=== PATIENT | female | born 1985 | race Caucasian/White ===

== ENCOUNTER 2020-02-04 13:05 | Outpatient (REF) | payer OTHER, SELFPAY ==
[2020-02-04 13:53] LABS: COVID-19 Test Negative (Negative)
== END 2020-02-04 13:06 | disposition home or self-care (01) ==
LOC: HO.LAB 13:05
PROVIDERS: Visit Provider Internal Medicine
DX: Z20.828 Contact with and (suspected) exposure to other viral communicable diseases (principal)
CPT/HCPCS: 87635

== ENCOUNTER 2020-03-26 11:54 | Outpatient (REF) | payer OTHER, SELFPAY ==
[2020-03-26 12:56] LABS: COVID-19 Test Negative (Negative)
== END 2020-03-26 11:55 | disposition home or self-care (01) ==
LOC: HO.EMPCOV 11:54
PROVIDERS: Visit Provider Internal Medicine
DX: Z20.828 Contact with and (suspected) exposure to other viral communicable diseases (principal)
CPT/HCPCS: 87635; C9803

== ENCOUNTER → 2020-04-24 14:25 | Outpatient (BNVA) | payer OTHER, SELFPAY | PROVIDERS: Visit Provider Physician Assistant Medical | DX: Z13.89 Encounter for screening for other disorder (principal) | CPT/HCPCS: 99202 ==

== ENCOUNTER → 2020-05-01 13:21 | Outpatient (BNVA) | payer OTHER, SELFPAY | PROVIDERS: Visit Provider Physician Assistant Medical | DX: M25.511 Pain in right shoulder (principal) | CPT/HCPCS: 99213 ==

== ENCOUNTER → 2020-05-15 09:07 | Outpatient (BNVA) | payer OTHER, SELFPAY | PROVIDERS: PCP Pediatrics; Visit Provider Physician Assistant Medical | DX: M25.511 Pain in right shoulder (principal) | CPT/HCPCS: 99213 ==

== ENCOUNTER → 2020-06-11 10:53 | Outpatient (BNVA) | payer OTHER, SELFPAY | PROVIDERS: PCP Pediatrics; Visit Provider Physician Assistant Medical | DX: Z13.89 Encounter for screening for other disorder (principal) | CPT/HCPCS: 99213 ==

== ENCOUNTER 2020-06-17 17:57 | Outpatient (REF) | payer OTHER, SELFPAY ==
--- NOTE | ~2020-06-17 | MR_ITS ---
EXAMINATION: MR SHOULDER WITHOUT CONTRAST, RIGHT CLINICAL INFORMATION: Persistent, recurrent right shoulder pain, not improved with physical therapy. COMPARISON: None TECHNIQUE: MRI of the shoulder without contrast was performed on a high-field scanner. FINDINGS: ROTATOR CUFF: As seen on image 10/20 of series 6, there is a very thin focus of intermediate interstitial signal intensity in the junctional fibers of the supraspinatus and infraspinatus tendons at the insertion, likely corresponding to very mild tendinosis at the junctional fibers with subtle concealed interstitial delamination. No significant tears. In particular, no surfacing tears are identified. No additional tendinopathy. No muscle atrophy or fatty infiltration. BICEPS: Normal. CORACOACROMIAL ARCH: The undersurface of the acromion is flat with no subacromial spur. The acromioclavicular joint is normal. No subacromial-subdeltoid bursitis. LABRUM/CAPSULE: Normal. No labral tears. Joint capsule is normal in thickness and signal intensity. GLENOHUMERAL JOINT/MARROW: Normal. Marrow signal is normal. Articular cartilage appears well preserved without findings of osteoarthritis. No joint effusion or synovitis. MR/MR shoulder RT wo con IMPRESSION: Subtle rotator cuff tendinosis at the junctional fibers of the supraspinatus and infraspinatus tendons. Otherwise normal right shoulder MRI.
== END 2020-06-17 17:58 | disposition home or self-care (01) ==
LOC: HO.MRI 17:57
PROVIDERS: Visit Provider Internal Medicine
DX: M25.511 Pain in right shoulder (principal)
CPT/HCPCS: 73221

== ENCOUNTER → 2020-06-25 15:34 | Outpatient (BNVA) | payer OTHER, SELFPAY | PROVIDERS: PCP Pediatrics; Visit Provider Physician Assistant | DX: Z13.89 Encounter for screening for other disorder (principal) | CPT/HCPCS: 99213 ==

== ENCOUNTER 2020-07-02 11:00 | Outpatient (RCR) | payer OTHER, SELFPAY ==
--- NOTE | 2020-05-05 08:01 | MHC.PT.EP ---
[facility] [place] Office [place] Office [place] Office [address] [phone] F: [phone] F: [phone] F: [phone] F: [phone] Physical Therapy Plan of Care Date of Evaluation: 05/05/20 Date of Surgery: Diagnosis: (R) Shoulder Derangement Assessment: Pt is a 35 y.o.f. with chief complaint of (R) shoulder pain that began on 04/24/20 while performing ultrasound on patient. PMH is significant for similar injury 2 years ago that improved with rest and physical therapy. Pt presents today with decreased shoulder A/AA/PROM, periscapular and shoulder strength deficits, postural abnormalities, and pain. Pt forward shoulder and downward rotation of (R) scapula likely associated with periscapular weakness. Pt sxs are consistent with shoulder impingement with possible underlying tendinopathy causing pain with overhead movement and work. 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 Frequency and Duration: The patient will be seen 2x/week for 5 weeks Short Term Goals: 2 Weeks: 1) Pt will be independent in HEP to maintain goals between sessions 2) Pt will be able to recognize and self correct posture to reduce pain. Residential Goals: 5 Weeks: 1) Pt will be able to perform 45 minute ultrasound with no increase in pain 2) Pt middle and lower trapezius strength will be >4/5 to aid in functional movement. 3) Pt SPADI will improve >10 point to signify significant improvement in functional activity (IR 32/130) Treatment Plan: Modalities to reduce pain, spasms and effusion. Manual therapy to restore motion and function. Therapeutic exercise to improve strength and flexibility. Neuromuscular re-education for posture and balance. Therapeutic activities to return to functional activities of daily living. Electronically signed by: Ivy Hernandez PT Please sign and return to therapist. Thank you for your referral.
--- NOTE | 2020-06-06 08:13 | MHC.PT.PR ---
[facility] [place] Office [place] Office [place] Office [address] [phone] F: [phone] F: [phone] F: [phone] F: [phone] Physical Therapy Progress Note Diagnosis: (R) Shoulder Derangement Date of Surgery: NA Date of Evaluation: 05/05/20 Treatments to Date: 4 Cancellations to Date: 0 No Shows to Date: 0 Subjective: She has been unable to come to PT due to her family (+) with COVID but they have all been cleared therefore she was able to return to PT. Her shoulder pain is diminishing and she has less pain at work. Still end-range pain however. Pain Score and Location: 0 (R) Shoulder Objective Measures: R AROM: flexion 150, ABD 128, ER 65, IR WNL R shoulder strength 5/5 throughout except ER/ Teres minor/supraspinatus/ Lats 4/5, Middle Traps 4-/5, Lower traps 3+/5 Assessment: Pt demonstrates improved R shoulder AROM today and strength gains. She reports compliance with HEP and now main complaint is pain at end range flex/abd/ER at this time. SHe has been working and having less pain with ultrasound at this time. We were able to progress HEP with weight and difficulty with good tolerance. She had pain with serratus punch so held. Continued tissue adhesions/ decreased mobility pec minor and biceps region. She would benefit from continued PT 2x/week for 2-3 more weeks as she was unable to attend the last 3 weeks due to family (+) with COVID and therefore needed to quarantine. PT Plan: Continue with PT Frequency and Duration: The patient will be seen 2x/week for 2-3 more weeks Treatment Plan: Therapeutic Exercise Dynamic Therapeutic Activities Neuromuscular Re-ed Manual Therapies Taping Home Exercise Program Patient Education Iontophoresis Reviewed/ Agreed with Student Documentation: N/A Therapist: Ivy Hernandez PT Thank you once again for your referral.
--- NOTE | 2020-08-05 11:32 | MHC.PT.DC ---
[facility] [place] Office [place] Office [place] Office [address] [phone] F: [phone] F: [phone] F: [phone] F: [phone] Physical Therapy Discharge Report Diagnosis: (R) Shoulder Derangement Date of Surgery: NA Date of Evaluation: 05/05/20 Date of Discharge: 08/05/20 Treatments to Date: 10 Cancellations to Date: 0 No Shows to Date: 0 Discharge Status: Independent with HEP Discharge Summary: Pt did not f/u with further visitws and was making good progress at time of last attended visit and I with HEP. Electronically signed by: Ivy Hernandez PT Please sign and return to therapist. Thank you for your referral.
== END 2020-08-05 11:32 | disposition home or self-care (01) ==
LOC: HO.PTCHIC 11:00
PROVIDERS: PCP Pediatrics; Visit Provider Physician Assistant Medical
DX: M24.811 Other specific joint derangements of right shoulder, not elsewhere classified (principal)
CPT/HCPCS: 97110; 97140; 97161